=== PATIENT | female | born 1950 | race Caucasian/White ===

== ENCOUNTER 2017-09-23 20:33 | Inpatient (IN) | payer MEDICARE, BC ==
[~2017-09-23] VITALS: Ht 170.2 cm; Wt 49.9 kg
[2017-09-23] MEDS ORDERED: RISP1TAB7 PO (20:58)
[2017-09-23] MEDS ORDERED: LORA0.5T48 PO (20:58)
[2017-09-23] MEDS ORDERED: MULT1TAB73 PO (20:58)
[2017-09-23] MEDS ORDERED: LEVE500T9 PO (20:58)
[2017-09-23] MEDS ORDERED: CHOL500062 PO (20:58)
[2017-09-23] MEDS ORDERED: [UNRECOGNIZED DRUG - OTHER] (20:58)
[2017-09-23] MEDS ORDERED: ESCI20TA37 PO (20:58)
[2017-09-23] MEDS ORDERED: QUET25TA PO (20:58)
[2017-09-23] MEDS ORDERED: ACET-2154 PO (20:58)
[2017-09-23] MEDS ORDERED: LEVE1000 PO (20:58)
[2017-09-23] MEDS ORDERED: DONE5TAB34 PO (21:44)
[2017-09-23] MEDS ORDERED: VALA500T PO (21:44)
[2017-09-23] MEDS ORDERED: ENOX40DI9 SQ (21:44)
[2017-09-23 22:14] LABS: *BILIRUBIN,URIN NEGATIVE (NEGATIVE); *BLOOD, URINE 3+ (NEGATIVE); *CLARITY,URINE SLIGHTLY CLOUDY (CLEAR); *COLOR,URINE YELLOW (YELLOW); *KETONES,URINE NEGATIVE (NEGATIVE); *PROTEIN,URINE NEGATIVE (NEGATIVE); *UROBILINOGEN,URINE 0.2 E.U./dl (NORMAL); LEUKOCYTE ESTERASE ,URINE 1+ (NEGATIVE); NITRITE, URINE NEGATIVE (NEGATIVE); PH,URINE 5.5 (5.0-8.0); UGLUCOSE NEGATIVE (NEGATIVE)
[2017-09-23 22:27] LABS: BACTERIA,URINE FEW /HPF (NONE SEEN); RBC,URINE 20-50 /HPF (0-3); SQUAMOUS EPITHELIAL CELL,UR MODERATE /HPF (NONE SEEN); WBC,URINE 20-50 /HPF (0-3)
--- NOTE | 2017-09-23 22:35 | NUR ---
JANNET DUFF CALLED, STATES WILL BE HERE IN 30 MIN.
[2017-09-23] MEDS ORDERED: CEPHALEXIN MONOHYDRATE 500 MG CAPSULE PO ONE (22:45)
[2017-09-23] MEDS ORDERED: CEPHALEXIN MONOHYDRATE 500 MG CAPSULE ONE (22:51)
--- NOTE | 2017-09-23 22:57 | NUR ---
JANNET DUFF HERE TO EVALUATE PATIENT.
--- NOTE | 2017-09-23 23:29 | NUR ---
Pt. admitted to MHU , under care of Dr. REILLY Belongs List completed.
[2017-09-23] MEDS ORDERED: ACETAMINOPHEN 325 MG TABLET PO PRN (23:45)
[2017-09-23] MEDS ORDERED: MAGNESIUM HYDROXIDE 30 ML LIQUID UDC PO PRN (23:45)
[2017-09-23] MEDS ORDERED: MAG HYDROX/AL HYDROX/SIMETH 30 ML LIQUID UDC PO PRN (23:45)
--- NOTE | 2017-09-24 01:00 | NUR ---
AT APPROX 0015, ADMITTED 67 YEAR OLD FEMALE TO [facility] MHU ON A 5150 FOR GD. PATIENT LIVES AT [facility]. SHE STARTED REFUSING CARE, REFUSING MEDICATION (SPITTING HER PO PILLS) DELUSIONAL AND PARANOID BEHAVIOR (STAFF TRYING TO HURT HER, POISON HER) STATING, "PEOPLE ARE GOING TO GET US". SHE THEN WAS TRANSPORTED TO [facility] WHERE SHE WAS MEDICALLY CLEARED AND TRANSPORTED TO [facility] ER FOR ADMISSION TO MHU UNDER THE CARE OF DR REILLY. HOLD STARTED ON 09/23/17 AT 2310 AND WILL BE UP ON 09/26/17 AT 2310. PT WAS CALM AND COOPERATIVE AT TIME OF ADMISSION; HOWEVER, SHE WAS CONFUSED AND UNABLE TO UNDERSTAND OF SIGN HER ADMISSION PAPERS. SHE DOES NOT RECALLED WHY SHE IS HERE. PATIENT WAS DX WITH UTI AT [facility] ER AND GIVEN KEFLEX 500MG PO YESTERDAY AT 2337. SKIN ASSESSMENT, REDNESS WAS NOTED IN RIGHT SIDE SACRAL AREA AND PURPLE DISCOLORATION IN HER LEFT HAND POSTERIOR ASPECT. HOWEVER NO SWELLING PAIN OR DISCOMFORT NOTED. WILL CONTINUE TO MONITOR.
[2017-09-24 01:52] VITALS: BP 130/81
[2017-09-24 02:13] VITALS: BP 130/81
[2017-09-24] MEDS ORDERED: Z GUARD REMEDY PASTE 57 GM TUBE TOP PRN (04:15)
[2017-09-24 07:30] VITALS: BP 120/82
[2017-09-24 08:00] LABS: THYROID STIMULATING HORMONE 1.003 mIU/mL (0.358-3.740)
[2017-09-24 08:17] LABS: BILIRUBIN,TOTAL 0.6 mg/dL (0.2-1.0); CREATININE 0.7 mg/dL (0.6-1.3); MAGNESIUM 1.9 mg/dL (1.8-2.4); PHOSPHOROUS 3.7 mg/dL (2.5-4.9); POTASSIUM 3.8 mmol/L (3.5-5.1); TOTAL PROTEIN, SERUM 7.4 g/dL (6.4-8.2)
[2017-09-24] MEDS ORDERED: Medication Not On Formulary EA (Levetiracetam (Keppra) 1,000 MG) PO SCH (09:00)
[2017-09-24] MEDS ORDERED: Medication Not On Formulary EA (Cholecalciferol (Vitamin D3) (Vitamin D3) 5,000 UNIT) PO SCH (09:00)
[2017-09-24] MEDS ORDERED: Medication Not On Formulary EA (Multivitamins (Multivitamin) 1 EACH) PO SCH (09:00)
[2017-09-24] MEDS: VALACYCLOVIR HCL 500 MG TABLET PO SCH (09:39)
[2017-09-24] MEDS: Z GUARD REMEDY PASTE 57 GM TUBE TOP SCH ×2 (09:40→20:18)
[2017-09-24] MEDS: SULFAMETH/TRIMETH 800/160 MG TABLET PO SCH ×2 (09:40→20:16)
[2017-09-24] MEDS: CHOLECALCIFEROL 1,000 UNIT TABLET PO SCH (09:40)
[2017-09-24] MEDS: MULTIVITAMINS,THERAPEUTIC TABLET PO SCH (09:40)
[2017-09-24] MEDS: LEVETIRACETAM 500 MG TABLET PO SCH ×2 (11:06→20:17)
[2017-09-24 12:45] LABS: BASOPHILS % (AUTO) 0.9 % (0.0-2.0); EOSINOPHILS # (AUTO) 0.1 K/uL (0.0-0.7); EOSINOPHILS % (AUTO) 2.3 % (0.0-7.0); HEMATOCRIT 39.3 % (37-47); HEMOGLOBIN 12.8 G/DL (12.0-16.0); LYMPHOCYTES # (AUTO) 1.6 K/UL (0.8-4.8); LYMPHOCYTES % (AUTO) 31.1 % (20.5-51.5); MEAN CORPUSCULAR HEMOGLOBIN 30.8 UUG (27.0-31.0); MEAN CORPUSCULAR HGB CONC 33 g/dL (32.0-37.0); MEAN CORPUSCULAR VOLUME 94.3 FL (81.0-99.0); MONOCYTES # (AUTO) 0.3 K/UL (0.1-1.30); MONOCYTES % (AUTO) 6.3 % (0.0-11.0); NEUTROPHILS # (AUTO) 3.3 K/UL (1.8-8.9); NEUTROPHILS % (AUTO) 59.4 % (38.5-71.5); PLATELET COUNT (AUTO) 431 K/UL (150-450); RED BLOOD CELL COUNT(AUTO) 4.17 MIL/UL (4.2-5.4); WHITE BLOOD COUNT (AUTO) 5.3 K/UL (4.0-11.2)
[2017-09-24] MEDS: ESCITALOPRAM OXALATE 10 MG TABLET PO SCH (13:41)
[2017-09-24] MEDS: QUETIAPINE FUMARATE 25 MG TABLET PO SCH ×2 (13:41→17:54)
--- NOTE | 2017-09-24 15:43 | NUR ---
Garbage Truck Helper: GENI completed and submitted [employer] firearms report on 09/24/17.
[2017-09-24 16:00] VITALS: BP 98/74
[2017-09-24 20:16] VITALS: BP 112/67
[2017-09-25 07:30] VITALS: BP 97/58
[2017-09-25] MEDS: VALACYCLOVIR HCL 500 MG TABLET PO SCH (08:42)
[2017-09-25] MEDS: CHOLECALCIFEROL 1,000 UNIT TABLET PO SCH (08:42)
[2017-09-25] MEDS: QUETIAPINE FUMARATE 25 MG TABLET PO SCH ×3 (08:43→13:39)
[2017-09-25] MEDS: ESCITALOPRAM OXALATE 10 MG TABLET PO SCH (08:43)
[2017-09-25] MEDS: SULFAMETH/TRIMETH 800/160 MG TABLET PO SCH ×2 (08:43→20:09)
[2017-09-25] MEDS: Z GUARD REMEDY PASTE 57 GM TUBE TOP SCH ×2 (08:44→20:10)
[2017-09-25] MEDS: MULTIVITAMINS,THERAPEUTIC TABLET PO SCH (08:53)
[2017-09-25] MEDS: LEVETIRACETAM 500 MG TABLET PO SCH ×2 (08:58→20:09)
[2017-09-25 15:10] VITALS: BP 128/55
[2017-09-25] MEDS: LORAZEPAM 0.5 MG TABLET PO PRN (20:09)
[2017-09-26 07:30] VITALS: BP 112/83
[2017-09-26] MEDS: ESCITALOPRAM OXALATE 10 MG TABLET PO SCH (08:38)
[2017-09-26] MEDS: MULTIVITAMINS,THERAPEUTIC TABLET PO SCH (08:38)
[2017-09-26] MEDS: VALACYCLOVIR HCL 500 MG TABLET PO SCH (08:39)
[2017-09-26] MEDS: QUETIAPINE FUMARATE 25 MG TABLET PO SCH ×3 (08:39→16:27)
[2017-09-26] MEDS: SULFAMETH/TRIMETH 800/160 MG TABLET PO SCH ×2 (08:39→20:26)
[2017-09-26] MEDS: LEVETIRACETAM 500 MG TABLET PO SCH ×2 (08:47→20:26)
[2017-09-26] MEDS: Z GUARD REMEDY PASTE 57 GM TUBE TOP SCH ×2 (08:55→20:55)
[2017-09-26] MEDS ORDERED: CHOLECALCIFEROL 1,000 UNIT TABLET PO SCH (09:00)
--- NOTE | 2017-09-26 10:21 | NUR ---
Initial DC Instructions: Pt currently resides at [facility] in the Memory Care Unit [[address], [place] [address]; ]. Spoke with pt's , Piter ([phone]), who states he would like pt to return there upon discharge. SW will speak with pt, family, and MD regarding appropriate discharge plans. SW will form a safe and proper discharge.
[2017-09-26 15:00] VITALS: BP 120/76
[2017-09-26 20:09] VITALS: BP 109/77
--- NOTE | 2017-09-26 21:30 | NUR ---
RECEIVED PATIENT IN THE DAY ROOM. SHE WAS NOTED A/O X1, CONFUSED, POOR INSIGHT AND FIXED IT ON HAVING SOMETHING STUCK IN HER BACK RIGHT MOLAR. PT WAS ASSESSED AND ASSISTED TO BRUSH TEETH. SHE IS REDIRECTABLE AT THIS TIME. MEDICATION COMPLIANT.
[2017-09-27 07:30] VITALS: BP 138/80
[2017-09-27] MEDS: ESCITALOPRAM OXALATE 10 MG TABLET PO SCH (09:00)
[2017-09-27] MEDS: VALACYCLOVIR HCL 500 MG TABLET PO SCH (09:00)
[2017-09-27] MEDS: QUETIAPINE FUMARATE 25 MG TABLET PO SCH ×3 (09:00→17:08)
[2017-09-27] MEDS: LEVETIRACETAM 500 MG TABLET PO SCH ×2 (09:00→21:20)
--- NOTE | 2017-09-27 09:12 | NUR ---
0830 ANTIQUE REFINISHER ASSISTED PATIENT WITH HER BREAKFAST MEAL BY OPENING COVERED FOOD, WHEN SUDDENLY PATIENT HIT STAFF WITH A TOAST BREAD ON THE CHEST.PATIENT AGITATED WITH AN ANGRY LOOK AND WILL CONTINUE TO OBSERVED BEHAVIOR. 0900 OFFERED MEDICATIONS, EXPLAINED EACH INDICATIONS , WHEN ALL OF SUDDENL PATIENT HIT THE STAFF HAND. PATIENT ANGRY AND TRIED TO HIT STAFF FOR THE SECOND TIME. CHARGED NURSE NOTIFIED PSYCHIATRIST CRIMPING MACHINE OPERATOR REGARDING PATIENT UNCONTROLLED BEHAVIOR.
[2017-09-27] MEDS: Z GUARD REMEDY PASTE 57 GM TUBE TOP SCH ×2 (12:14→21:20)
[2017-09-27 15:00] VITALS: BP 118/88
[2017-09-27] MEDS: HALOPERIDOL LACTATE 10 MG/5 ML ORAL SOLUTION UDC PO SCH (17:09)
[2017-09-27 20:03] VITALS: BP 110/69
[2017-09-28 07:30] VITALS: BP 123/66
[2017-09-28 08:08] LABS: BASOPHILS % (AUTO) 0.6 % (0.0-2.0); EOSINOPHILS # (AUTO) 0.4 K/uL (0.0-0.7); EOSINOPHILS % (AUTO) 8.2 % (0.0-7.0); HEMATOCRIT 37.5 % (37-47); HEMOGLOBIN 12.5 G/DL (12.0-16.0); LYMPHOCYTES # (AUTO) 1.5 K/UL (0.8-4.8); LYMPHOCYTES % (AUTO) 32.6 % (20.5-51.5); MEAN CORPUSCULAR HGB CONC 33 g/dL (32.0-37.0); MEAN CORPUSCULAR VOLUME 93.2 FL (81.0-99.0); MONOCYTES # (AUTO) 0.5 K/UL (0.1-1.30); MONOCYTES % (AUTO) 10.2 % (0.0-11.0); NEUTROPHILS # (AUTO) 2.2 K/UL (1.8-8.9); NEUTROPHILS % (AUTO) 48.4 % (38.5-71.5); RED BLOOD CELL COUNT(AUTO) 4.03 MIL/UL (4.2-5.4); WHITE BLOOD COUNT (AUTO) 4.6 K/UL (4.0-11.2)
[2017-09-28 08:14] LABS: PLATELET COUNT (AUTO) 402 K/UL (150-450)
[2017-09-28 08:31] LABS: BILIRUBIN,TOTAL 0.4 mg/dL (0.2-1.0); CREATININE 0.8 mg/dL (0.6-1.3); MAGNESIUM 2.1 mg/dL (1.8-2.4); PHOSPHOROUS 3.6 mg/dL (2.5-4.9); POTASSIUM 4.1 mmol/L (3.5-5.1)
[2017-09-28] MEDS: HALOPERIDOL LACTATE 10 MG/5 ML ORAL SOLUTION UDC PO SCH ×2 (09:31→17:01)
[2017-09-28] MEDS: LEVETIRACETAM 500 MG TABLET PO SCH ×2 (09:31→20:15)
[2017-09-28] MEDS: QUETIAPINE FUMARATE 25 MG TABLET PO SCH ×3 (09:32→17:01)
[2017-09-28] MEDS: VALACYCLOVIR HCL 500 MG TABLET PO SCH (09:32)
[2017-09-28] MEDS: ESCITALOPRAM OXALATE 10 MG TABLET PO SCH (09:32)
[2017-09-28] MEDS: Z GUARD REMEDY PASTE 57 GM TUBE TOP SCH ×2 (09:34→20:15)
[2017-09-28 15:15] VITALS: BP 96/69
[2017-09-28 20:10] VITALS: BP 123/79
[2017-09-28] MEDS: LORAZEPAM 0.5 MG TABLET PO PRN (22:09)
[2017-09-29 07:30] VITALS: BP 100/67
[2017-09-29] MEDS: QUETIAPINE FUMARATE 25 MG TABLET PO SCH ×3 (09:12→17:27)
[2017-09-29] MEDS: HALOPERIDOL LACTATE 10 MG/5 ML ORAL SOLUTION UDC PO SCH ×2 (09:12→17:27)
[2017-09-29] MEDS: LEVETIRACETAM 500 MG TABLET PO SCH ×2 (09:12→20:34)
[2017-09-29] MEDS: VALACYCLOVIR HCL 500 MG TABLET PO SCH (09:13)
[2017-09-29] MEDS: ESCITALOPRAM OXALATE 10 MG TABLET PO SCH (09:13)
[2017-09-29] MEDS: Z GUARD REMEDY PASTE 57 GM TUBE TOP SCH ×2 (09:13→20:34)
[2017-09-29 17:09] VITALS: BP 113/66
[2017-09-29 20:25] VITALS: BP 124/85
--- NOTE | 2017-09-29 20:30 | NUR ---
GPS: At approximately 1913 during shift change,pt.was in the dining room standing when she tried to sit to a chair next to her but she missed it and ended up landing on the floor on a sitting position. No injuries reported/noted. Denied pain when asked. Pt.able to move all extremities freely without any c/o pain/discomfort. Safety emphasized. Pt.remains confused,disoriented. in the unit made aware. (psychiatrist) also was made aware. Pts. notified of incident,left message on his answering machine. supervisor shuttle fitting and charge nurse both aware of the incident. Will monitor closely. Environment kept free from hazard at all times. Floor was dry without any wet spots.
[2017-09-30 07:30] VITALS: BP 126/69
[2017-09-30] MEDS: HALOPERIDOL LACTATE 10 MG/5 ML ORAL SOLUTION UDC PO SCH ×2 (08:43→17:03)
[2017-09-30] MEDS: ESCITALOPRAM OXALATE 10 MG TABLET PO SCH (08:44)
[2017-09-30] MEDS: QUETIAPINE FUMARATE 25 MG TABLET PO SCH ×3 (08:44→17:03)
[2017-09-30] MEDS: LEVETIRACETAM 500 MG TABLET PO SCH ×2 (08:44→20:04)
[2017-09-30] MEDS: VALACYCLOVIR HCL 500 MG TABLET PO SCH (08:44)
[2017-09-30] MEDS: Z GUARD REMEDY PASTE 57 GM TUBE TOP SCH ×2 (08:44→20:05)
[2017-09-30 15:34] VITALS: BP 128/90
[2017-09-30 19:49] VITALS: BP 127/95
[2017-09-30] MEDS: TEMAZEPAM 7.5 MG CAPSULE PO PRN (20:04)
--- NOTE | 2017-09-30 22:00 | NUR ---
received to care, sitting in day room, watching tv, with peers. compliant with medications and staff direction. PRN restoril given for insomnia at 2003. by 2129, she went to bed. as of 2199, she appears to be asleep. no distress noted. will continue to monitor closely.
--- NOTE | 2017-10-01 06:00 | NUR ---
slept 9.0 hours, total. continues to sleep. no distress noted.
[2017-10-01 07:30] VITALS: BP 107/60
[2017-10-01] MEDS: LEVETIRACETAM 500 MG TABLET PO SCH ×2 (09:41→20:13)
[2017-10-01] MEDS: ESCITALOPRAM OXALATE 10 MG TABLET PO SCH (09:41)
[2017-10-01] MEDS: HALOPERIDOL LACTATE 10 MG/5 ML ORAL SOLUTION UDC PO SCH ×3 (09:41→18:00)
[2017-10-01] MEDS: VALACYCLOVIR HCL 500 MG TABLET PO SCH (09:42)
[2017-10-01] MEDS: Z GUARD REMEDY PASTE 57 GM TUBE TOP SCH ×2 (09:45→20:16)
[2017-10-01 16:00] VITALS: BP 134/91
[2017-10-01 20:11] VITALS: BP 128/71
[2017-10-01] MEDS: TEMAZEPAM 7.5 MG CAPSULE PO PRN (21:10)
--- NOTE | 2017-10-01 22:00 | NUR ---
received to care, sitting in day room, watching tv, with peers, with a sad expression, on her face. no interactions noted, with peers. remains compliant with medications and staff direction. PRN restoril given for insomnia at 2109. as of 2199, she appears to be asleep, in bed. no distress noted. will continue to monitor closely.
--- NOTE | 2017-10-02 06:00 | NUR ---
slept 9.0 hours, total. assisted with am care, and shower. currently back, in bed, asleep. no distress noted.
[2017-10-02 07:30] VITALS: BP 103/64
[2017-10-02] MEDS: HALOPERIDOL LACTATE 10 MG/5 ML ORAL SOLUTION UDC PO SCH ×3 (08:32→17:00)
[2017-10-02] MEDS: ESCITALOPRAM OXALATE 10 MG TABLET PO SCH (08:32)
[2017-10-02] MEDS: LEVETIRACETAM 500 MG TABLET PO SCH ×2 (08:32→21:02)
[2017-10-02] MEDS: VALACYCLOVIR HCL 500 MG TABLET PO SCH (08:32)
[2017-10-02] MEDS: Z GUARD REMEDY PASTE 57 GM TUBE TOP SCH ×2 (08:33→20:14)
[2017-10-02] MEDS: DIVALPROEX 500 MG TABLET.DR PO SCH ×2 (12:01→21:02)
[2017-10-02 15:54] VITALS: BP 132/95
--- NOTE | 2017-10-02 17:30 | NUR ---
Gps/Provider Scribe- Needed encouragement to feed self , poor initiation , needed prompting.Monitored closely for safety.
[2017-10-02 21:09] VITALS: BP 143/91
--- NOTE | 2017-10-02 22:00 | NUR ---
received to care, pleasant when approached, but appearing confused, sitting in activity room with peers, no interactions, noted. compliant with medications and staff direction. assisted to bed around 2100. as of 2200, she appears asleep. no distress noted. will continue to monitor closely.
--- NOTE | 2017-10-03 06:00 | NUR ---
slept 8.0 hours, total. assisted with am care, and shower. no distress noted.
[2017-10-03 07:30] VITALS: BP 110/68
[2017-10-03] MEDS: HALOPERIDOL LACTATE 10 MG/5 ML ORAL SOLUTION UDC PO SCH ×3 (08:33→16:25)
[2017-10-03] MEDS: VALACYCLOVIR HCL 500 MG TABLET PO SCH (08:33)
[2017-10-03] MEDS: ESCITALOPRAM OXALATE 10 MG TABLET PO SCH (08:33)
[2017-10-03] MEDS: Z GUARD REMEDY PASTE 57 GM TUBE TOP SCH ×2 (08:34→20:06)
[2017-10-03] MEDS: LEVETIRACETAM 500 MG TABLET PO SCH ×2 (08:34→20:06)
[2017-10-03] MEDS: DIVALPROEX 500 MG TABLET.DR PO SCH ×2 (08:35→20:06)
[2017-10-03] MEDS ORDERED: BENZTROPINE MESYLATE 2 MG/2 ML AMPUL IM STA (11:44)
--- NOTE | 2017-10-03 14:00 | NUR ---
Gps/Tennis Ball Cover Cementer- Remains in her room in bed, asleep at this time, no distress noted, appeared comfort, on her right side.
[2017-10-03 15:00] VITALS: BP 120/67
[2017-10-03] MEDS: BENZTROPINE MESYLATE 1 MG TABLET PO SCH (16:25)
[2017-10-03 20:21] VITALS: BP 122/60
--- NOTE | 2017-10-04 06:30 | NUR ---
GPS: REMAIN CALM AND COOPERATIVE WITH MEDS AND NURSING CARE. SHOWERED THIS MORNING.SLEPT 7 HRS THROUGH THE NIGHT. CONTINUE PLAN OF CARE.
[2017-10-04 07:30] VITALS: BP 120/77
[2017-10-04 07:55] LABS: BASOPHILS # (AUTO) 0.1 K/uL (0.0-8.0); EOSINOPHILS # (AUTO) 0.1 K/uL (0.0-0.7); EOSINOPHILS % (AUTO) 0.8 % (0.0-7.0); HEMATOCRIT 35.4 % (31.2-41.9); HEMOGLOBIN 11.9 g/dL (10.9-14.3); LYMPHOCYTES # (AUTO) 1.6 K/uL (20.0-40.0); LYMPHOCYTES % (AUTO) 23.9 % (20.5-51.5); MEAN CORPUSCULAR HEMOGLOBIN 31.7 uug (24.7-32.8); MEAN CORPUSCULAR HGB CONC 34 g/dL (32.3-35.6); MEAN CORPUSCULAR VOLUME 93.9 fL (75.5-95.3); MONOCYTES # (AUTO) 0.5 K/uL (2.0-10.0); MONOCYTES % (AUTO) 7.5 % (0.0-11.0); NEUTROPHILS # (AUTO) 4.6 K/uL (1.8-8.9); NEUTROPHILS % (AUTO) 66.8 % (38.5-71.5); PLATELET COUNT (AUTO) 278 K/uL (179-408); RED BLOOD CELL COUNT(AUTO) 3.77 MIL/uL (3.63-4.92)
[2017-10-04 08:10] LABS: WHITE BLOOD COUNT (AUTO) 6.9 K/uL (3.8-11.8)
[2017-10-04 08:17] LABS: CREATININE 0.6 mg/dL (0.6-1.3)
[2017-10-04] MEDS: HALOPERIDOL LACTATE 10 MG/5 ML ORAL SOLUTION UDC PO SCH ×3 (09:29→16:53)
[2017-10-04] MEDS: VALACYCLOVIR HCL 500 MG TABLET PO SCH (09:29)
[2017-10-04] MEDS: DIVALPROEX 500 MG TABLET.DR PO SCH (09:29)
[2017-10-04] MEDS: BENZTROPINE MESYLATE 1 MG TABLET PO SCH ×3 (09:29→16:52)
[2017-10-04] MEDS: LEVETIRACETAM 500 MG TABLET PO SCH ×2 (09:29→20:18)
[2017-10-04] MEDS: Z GUARD REMEDY PASTE 57 GM TUBE TOP SCH ×2 (09:30→20:19)
[2017-10-04] MEDS: ESCITALOPRAM OXALATE 10 MG TABLET PO SCH (09:30)
[2017-10-04 15:00] VITALS: BP 110/50
[2017-10-04 20:09] VITALS: BP 104/59
--- NOTE | 2017-10-05 06:29 | NUR ---
gps: remain calm quiet and cooperative. no c/o pain or discomfort at this time. assisted to use bathroom then back to bed. patient ambulate with assist slow steady gait. slept 8 hrs through the night. Addendum: 10/05/17 at 0631 by SIMONE GARCIAS LVN patient slept 09:30 hrs not 8 hrs.
[2017-10-05] MEDS: ESCITALOPRAM OXALATE 10 MG TABLET PO SCH (08:30)
[2017-10-05] MEDS: HALOPERIDOL LACTATE 10 MG/5 ML ORAL SOLUTION UDC PO SCH ×3 (08:30→16:52)
[2017-10-05] MEDS: BENZTROPINE MESYLATE 1 MG TABLET PO SCH ×3 (08:30→16:51)
[2017-10-05] MEDS: LEVETIRACETAM 500 MG TABLET PO SCH ×2 (08:30→20:50)
[2017-10-05] MEDS: Z GUARD REMEDY PASTE 57 GM TUBE TOP SCH ×2 (08:31→20:49)
[2017-10-05] MEDS: VALACYCLOVIR HCL 500 MG TABLET PO SCH (08:31)
[2017-10-05 08:33] VITALS: BP 94/57
[2017-10-05 16:38] VITALS: BP 109/52
[2017-10-05 20:00] VITALS: BP 114/54
[2017-10-06 07:30] VITALS: BP 100/61
[2017-10-06] MEDS: ESCITALOPRAM OXALATE 10 MG TABLET PO SCH ×2 (09:00→16:16)
[2017-10-06] MEDS: BENZTROPINE MESYLATE 1 MG TABLET PO SCH ×2 (09:00→16:16)
[2017-10-06] MEDS: LEVETIRACETAM 500 MG TABLET PO SCH ×2 (09:00→20:21)
[2017-10-06] MEDS: HALOPERIDOL LACTATE 10 MG/5 ML ORAL SOLUTION UDC PO SCH ×2 (09:00→16:16)
[2017-10-06] MEDS: VALACYCLOVIR HCL 500 MG TABLET PO SCH (09:00)
[2017-10-06] MEDS: Z GUARD REMEDY PASTE 57 GM TUBE TOP SCH ×2 (10:03→20:19)
[2017-10-06 16:48] VITALS: BP 98/54
[2017-10-06 19:45] VITALS: BP 101/64
[2017-10-07] MEDS: Z GUARD REMEDY PASTE 57 GM TUBE TOP SCH (08:50)
[2017-10-07] MEDS: LEVETIRACETAM 500 MG TABLET PO SCH (09:29)
[2017-10-07] MEDS: ESCITALOPRAM OXALATE 10 MG TABLET PO SCH (09:29)
[2017-10-07] MEDS: HALOPERIDOL LACTATE 10 MG/5 ML ORAL SOLUTION UDC PO SCH (09:29)
[2017-10-07] MEDS: BENZTROPINE MESYLATE 1 MG TABLET PO SCH (09:29)
--- NOTE | 2017-10-07 09:45 | NUR ---
GPS: Nursing Notes: Refusing for Pictures to Taken: Patient refusing for pictures to be taken, uncooperative and resistant with nursing care, continue with treatment plan.
--- NOTE | 2017-10-07 10:32 | NUR ---
DC Note: Patient will be discharged to [facility] [[address], [place] [address]; ] via ambulance at 1pm. Spoke with Kelsea at the facility who states they are ready to accept the pt today. Spoke with pt's , Piter ([phone]) who is aware and agreeable with discharge plans. Pt is aware and agreeable with discharge plans. Pt will follow up with Dr. Calvo (Patron Attendant) and Dr. Steele (Psychiatrist) at the facility
--- NOTE | 2017-10-07 12:00 | NUR ---
GPS: Nursing Notes: Discharge Notes: Patient is awake and responding to her name, disoriented to time and place, compliant with her medications, cooperative with nursing care, denies any SI/HI, denies any AH/VH, denies any pain or discomfort, denies any SOB, discharge to [facility] at [address] [place] [id number] , report given to admission nurse Yoil at the facility, transported to facility via ambulance, Dr. Steele (psychiatrist) and Dr. Calvo (lead sales consultant) will continue with aftercare at the facility.
== END 2017-10-07 12:00 | DRG 885 ==
LOC: ER 20:35 → GPS 23:35
PROVIDERS: ADMIT Psychiatry & Neurology Psychosomatic Medicine; ATTEND Internal Medicine
DX: F33.3 Major depressive disorder, recurrent, severe with psychotic symptoms (principal); F02.80 Dementia in other diseases classified elsewhere, unspecified severity, without behavioral disturbance, psychotic disturbance, mood disturbance, and anxiety; G30.9 Alzheimer's disease, unspecified; N39.0 Urinary tract infection, site not specified; G40.909 Epilepsy, unspecified, not intractable, without status epilepticus; Z91.14 Patient's other noncompliance with medication regimen; Z79.899 Other long term (current) drug therapy; Z86.19 Personal history of other infectious and parasitic diseases; M19.90 Unspecified osteoarthritis, unspecified site; M81.0 Age-related osteoporosis without current pathological fracture
CPT/HCPCS: 36415; 71010; 82306; 83735; 84100; 84443; 85025; 87086; 93005; A4663; J0515